=== PATIENT | male | born 1985 | race Two or more races ===

== ENCOUNTER 2022-04-02 12:08 | Emergency (ER) | payer OTHER ==
[~2022-04-02] VITALS: Ht 167.6 cm; Wt 72.0 kg
[2022-04-02 13:09] VITALS: BP 114/68
== END 2022-04-02 14:00 | disposition home or self-care (01) ==
LOC: EMS 12:12
DX: M25.562 Pain in left knee (principal); V89.2XXA Person injured in unspecified motor-vehicle accident, traffic, initial encounter; Y93.89 Activity, other specified; Y92.89 Other specified places as the place of occurrence of the external cause; Y99.8 Other external cause status
CPT/HCPCS: 99283